=== PATIENT | male | born 1985 | race Caucasian/White ===

== ENCOUNTER 2019-06-26 10:36 | Emergency (ER) | payer SELFPAY ==
--- NOTE | 2019-06-26 10:42 | ED.DENTAL ---
HPI - Dental/Oral General Chief complaint: Dental/Oral Stated complaint: tooth pain/swelling Time Seen by Provider: 06/26/19 10:42 Source: patient and RN notes reviewed History of Present Illness HPI Narrative: Patient is a 34-year-old male that presents the urgent care with complaints of lower right jaw swelling and dental pain. Patient states that the pain started approximately 2 days ago and he woke up this morning after a nap at 3 AM with increased lower right jaw swelling. Patient states he has spoke to his dentist since the tooth pain started and he was supposed to be seen last month to get the tooth pulled. However, patient states that he did not go in due to COVID-19. Patient states his dentist should be calling him back today. States that he has been using ibuprofen for the pain. No other acute complaints. Denies any known fever, nausea, vomiting, bad taste in the mouth. Patient states he was treated for the same swelling and infection in March. Patient aware of the plan of care. Related Data Allergies Allergy/AdvReac Type Severity Reaction Status Date / Time No Known Allergies Allergy Unverified 06/26/19 10:50 Review of Systems Review of Systems: Narrative: CONSTITUTIONAL: Denies fever, chills, or sweats. EYES: Denies visual changes, redness, or discharge. ENT: Denies rhinorrhea, congestion, sore throat, or otalgia. Complaints of lower right dental pain and swelling CARDIOVASCULAR: Denies chest pain, palpitations, or edema. RESPIRATORY: Denies cough or dyspnea. GASTROINTESTINAL: Denies abdominal pain, nausea, vomiting, or diarrhea. GENITOURINARY: Denies dysuria or hematuria. SKIN: Denies rash or itching. MUSCULOSKELETAL: Denies back pain, joint pain, or myalgia. NEUROLOGIC: Denies headache, numbness, or weakness. All other systems reviewed are negative, except as documented in HPI. PMFSH Comments At the time of my signature, I reviewed and agree with the nursing past medical, surgical, social, and family history. There is no relevant family history pertinent to the patient complaint. Exam Narrative: Exam Narrative: GENERAL: This is a well-nourished, well-developed patient, in no apparent distress. HEAD: normocephalic, atraumatic. EYES: PERRL. Sclera clear/white. Vision is grossly intact. EARS: External ears normal NOSE: External nose normal with no obvious nasal discharge, nares without redness, no rhinorrhea. THROAT: Mucous membranes moist, posterior pharynx clear. Moderate lower right jaw swelling and tenderness. Notable erythemic abscess noted to the buccal aspect of the lower right first molar (#3) NECK: Neck supple CARDIOVASCULAR: Regular rate and rhythm without murmurs, gallops, or rubs. RESPIRATORY: Clear to auscultation. Breath sounds equal bilaterally. No wheezes, rales, or rhonchi. SKIN: warm, intact with no suspicious lesions or rash, good texture and turgor. NEURO: awake, alert, and oriented to person, place and time. There were no obvious focal neurologic abnormalities. EXTREMITIES: No clubbing, cyanosis, or edema. Course Vital Signs Vital signs: Vital Signs Temperature 100.1 F H 06/26/19 10:48 Pulse Rate 108 H 06/26/19 10:48 Respiratory Rate 16 06/26/19 10:48 Blood Pressure 149/90 H 06/26/19 10:48 Pulse Oximetry 100 06/26/19 10:48 Temperature 100.1 F H 06/26/19 10:48 Pulse Rate 108 H 06/26/19 10:48 Respiratory Rate 16 06/26/19 10:48 Blood Pressure 149/90 H 06/26/19 10:48 Pulse Oximetry 100 06/26/19 10:48 Reviewed?patient is informed that they may have pre-hypertension or hypertension based on a blood pressure reading in the department. I recommend the patient call the primary care provider listed on their discharge instructions or a physician of their choice this week to arrange follow-up for further evaluation of possible pre-hypertension or hypertension. MDM - Dental/Oral MDM Narrative Medical decision making narrative: Advised the patient to complete the o
[2019-06-26 10:48] VITALS: BP 149/90; PULSE 108; RESP 16; TEMP 36.8; O2SAT 100
== END 2019-06-26 11:11 | disposition home or self-care (01) ==
PROVIDERS: Emergency Provider Nurse Practitioner Family
DX: K04.7 Periapical abscess without sinus (principal)
CPT/HCPCS: 99203; G0463

== ENCOUNTER 2020-01-23 15:53 | Emergency (ER) | payer OTHER, SELFPAY ==
[2020-01-23 16:05] VITALS: BP 130/72; PULSE 92; RESP 18; TEMP 36.8; O2SAT 98
--- NOTE | 2020-01-23 16:31 | ED.MALEGU ---
HPI - Male Genitourinary General Chief complaint: Urogenital-Male Stated complaint: poss uti Time Seen by Provider: 01/23/20 16:31 Source: patient Mode of arrival: ambulatory History of Present Illness HPI Narrative: Patient presents with burning with urination. Patient complains of low suprapubic pain. Patient states he has urinary urgency and voids often. Patient denies any gross hematuria denies any back pain denies any flank pain patient denies any concern for STDs. Patient states he does have a history of kidney stones but does not have any flank pain at this time. Patient denies any testicular pain. Patient denies any penile discharge. Related Data Home Medications Medication Instructions Recorded Confirmed No Home Medications 01/23/20 01/23/20 Allergies Allergy/AdvReac Type Severity Reaction Status Date / Time No Known Allergies Allergy Verified 01/23/20 16:35 Review of Systems Review of Systems: Narrative: CONSTITUTIONAL: Denies fever, chills, or sweats. EYES: Denies visual changes, redness, or discharge. ENT: Denies rhinorrhea, congestion, sore throat, or otalgia. CARDIOVASCULAR: Denies chest pain, palpitations, or edema. RESPIRATORY: Denies cough or dyspnea. GASTROINTESTINAL: Denies abdominal pain, nausea, vomiting, or diarrhea. GENITOURINARY: Denies hematuria. Reports dysuria and urinary frequency and urgency SKIN: Denies rash or itching. MUSCULOSKELETAL: Denies back pain, joint pain, or myalgia. NEUROLOGIC: Denies headache, numbness, or weakness. PSYCHIATRIC: Denies anxiety or depression. PMFSH Comments At time of signature, agree with nursing past medical, surgical, social and family history. There is no relevant family history pertinent to the presenting complaint Exam Narrative: Exam Narrative: GENERAL: Well-appearing, well-nourished, and in no acute distress. HEAD: Normocephalic, atraumatic. EYES: PERRLA and EOMI. ENT: Nares clear, no rhinorrhea or epistaxis. Mucous membranes moist. NECK: Supple. CHEST: Clear to auscultation. No respiratory distress. HEART: Regular rate and rhythm. No murmur heard. Normal peripheral pulses. ABDOMEN: Soft, nontender, nondistended, normal active bowel sounds. EXTREMITIES: Normal range of motion. No edema. SKIN: Warm, dry, no rash. NEURO: No focal deficits. Alert and oriented x3. [place] Coma Scale Eye Opening: Spontaneous 4 [place] Coma Scale Motor: Obeys Commands 6 [place] Coma Scale Verbal: Oriented 5 [place] Coma Scale Total 15 MDM - Male Genitourinary Differential Diagnosis Differential diagnosis: Likely urinary tract infection, priapism, urethritis, epididymitis, genital herpes simplex, prostatitis and acute retention of urine Critical Care Time Critical Care Time Critical Care Time: No Discharge Plan Discharge Clinical Impression: Urinary tract infection, Dysuria, Urinary urgency, Increased urinary frequency Patient Disposition: Home, Self-Care Condition: Stable Instructions: Antibiotic Form, Urinary Tract Infection in Men (ED) Additional Instructions: Increase fluids especially cranberry juice and water Avoid caffeine and carbonated beverages Antibiotic as directed Medicine as directed--cautioned it will cause your urine to be bright orange Tylenol/ibuprofen for pain or fever Follow-up with her primary care provider if further problems or concerns Repeat urinalysis in 7 to 10 days Recheck if you have fever over 101, nausea and vomiting -If you have any worsening of symptoms or any other concerns please go to the ED immediately. Prescriptions: New cephalexin [Keflex] 500 mg capsule 500 mg PO Q12H Qty: 14 RF: 0 No Action No Home Medications RF: 0 Follow-up/Referrals: PHYSICIAN,WOODYARD OPERATOR [Primary Care Provider] - Time of Disposition: 16:40
== END 2020-01-23 16:45 | disposition home or self-care (01) ==
PROVIDERS: Emergency Provider Nurse Practitioner Family
DX: N39.0 Urinary tract infection, site not specified (principal)
CPT/HCPCS: 81003; 87086; 99213; G0463

== ENCOUNTER 2021-02-16 19:32 | Emergency (ER) | payer OTHER, SELFPAY ==
[2021-02-16 19:40] VITALS: BP 151/80; PULSE 109; RESP 20; TEMP 37.2; O2SAT 99
--- NOTE | 2021-02-16 19:53 | ED.URI ---
HPI - URI/Sore Throat General Chief Complaint: Upper Respiratory Infection Stated Complaint: Cough/Congestion Time Seen by Provider: 02/16/21 19:34 Source: patient Mode of arrival: ambulatory Limitations: no limitations History of Present Illness HPI Narrative: 35-year-old male presents to [facility] with complaints of nasal congestion, cough, chest congestion and shortness breath with exertion for the past 3 to 5 days. Patient reports that he had Covid back in November 2020 he feels like he has had a cough since. Patient denies runny nose, fever, body aches or chills. Patient is a smoker. Patient's children currently have similar symptoms. Patient denies recent travel MD elicited complaint: cough and nasal congestion Onset (ago): day(s) (3) Able to tolerate fluids by mouth: Yes Context: sick contacts Related Data Allergies Allergy/AdvReac Type Severity Reaction Status Date / Time No Known Allergies Allergy Verified 02/16/21 19:57 Review of Systems Constitutional: Constitutional: Denies chills and Denies fever(s) ENT: Reports nasal congestion and Denies sore throat Cardiovascular: Cardiovascular: Denies chest pain and Denies radiating jaw, neck or arm pain Respiratory: Respiratory: Reports chest congestion, Reports cough and Reports dyspnea Gastrointestinal: Gastrointestinal: Denies abdominal pain, Denies diarrhea, Denies nausea and Denies vomiting PMFSH Social History Social History (Updated 02/16/21 @ 19:55 by Fide Rodriguez, [employer]END[employer]) Smoking status: Current every day smoker Comments At time of signature, I agree with nursing past medical, surgical, social and family history. There is no relevant family history pertinent to the presenting complaint. Exam Const: General: healthy appearing and no acute distress Orientation/consciousness: patient oriented x3 HENMT: Ears: external ears normal General nose exam: Normal external nose present and Normal nares present Face and sinus: sinuses nontender Mouth: Yes moist mucous membranes Throat: posterior oropharynx normal and uvula midline Other: Mild nasal congestion noted Neck: Neck: normal visual inspection Resp: Effort & Inspection: normal respiratory effort Auscultation: clear to auscultation bilaterally Cardio: Rate: regular rate Rhythm: regular rhythm Skin: General skin exam: normal color Rashes: no rashes Neuro: General: patient oriented x3 and moves all extremities Psych: Mental Status: mental status grossly normal Affect: normal affect Attitude: cooperative Thought content: Yes Normal thought content present Course Vital Signs Vital signs: Vital Signs Temperature 37.2 C 02/16/21 19:40 Pulse Rate 109 H 02/16/21 19:40 Respiratory Rate 20 02/16/21 19:40 Blood Pressure 151/80 H 02/16/21 19:40 Pulse Oximetry 99 02/16/21 19:40 Temperature 37.2 C 02/16/21 19:40 Pulse Rate 109 H 02/16/21 19:40 Respiratory Rate 20 02/16/21 19:40 Blood Pressure 151/80 H 02/16/21 19:40 Pulse Oximetry 99 02/16/21 19:40 MDM - URI/Sore Throat MDM Narrative Medical decision making narrative: Patient agrees to take medications as prescribed. Patient agrees to proceed to the emergency room if symptoms worsen Differential Diagnosis Differential diagnosis: Likely otitis media, sinusitis and viral infection Lab Data Labs: (-) Influenza Critical Care Time Critical Care Time Critical Care Time: No Discharge Plan Discharge Clinical Impression: Acute upper respiratory infection Patient Disposition: Home, Self-Care Condition: Stable Instructions: Upper Respiratory Infection (ED) Additional Instructions: Rest Increase fluids Take Medrol Dosepak as prescribed Take Tessalon as needed for cough [id number] Motrin or Tylenol as needed Follow-up with primary care provider if symptoms not improved Proceed to the emergency room if symptoms worsen Patient Language: Brazilian Prescriptions: New methylprednisolo
== END 2021-02-16 20:10 | disposition home or self-care (01) ==
PROVIDERS: Emergency Provider Nurse Practitioner Family
DX: J06.9 Acute upper respiratory infection, unspecified (principal); F17.210 Nicotine dependence, cigarettes, uncomplicated; J45.909 Unspecified asthma, uncomplicated; Z86.16 Personal history of COVID-19
CPT/HCPCS: 87804; 99213; G0463

== ENCOUNTER 2021-11-04 15:19 | Emergency (ER) | payer OTHER, SELFPAY ==
--- NOTE | 2021-11-04 15:21 | ED.URI ---
HPI - URI/Sore Throat General Chief Complaint: Upper Respiratory Infection Stated Complaint: nose and throat itchy eyes itchy Time Seen by Provider: 11/04/21 15:21 Source: patient and RN notes reviewed History of Present Illness HPI Narrative: Patient is a 36-year-old male who presents the urgent care with complaints of nasal congestion, itchy eyes, sore throat, cough and sneezing. Patient states that its been ongoing for the last couple days and seems to have worsened in the last 48 hours. Patient states he does have seasonal allergies and does sleep with a fan on blowing directly on his face. Patient has been taking Benadryl, Mucinex and allergy medication. Denies of any fevers. No other acute complaints. No acute distress noted. Patient read the plan of care. Some parts of this dictation were generated by voice recognition software and may contain typographical and/or grammatical inaccuracies. Related Data Allergies Allergy/AdvReac Type Severity Reaction Status Date / Time No Known Allergies Allergy Verified 11/04/21 15:31 Review of Systems Review of Systems: CONSTITUTIONAL: Denies fever, chills, or sweats. EYES: Reports of clear drainage and eye itchiness ENT: Reports of nasal congestion, rhinorrhea, sore throat CARDIOVASCULAR: Denies chest pain, palpitations, or edema. RESPIRATORY: Reports of cough without dyspnea GASTROINTESTINAL: Denies abdominal pain, nausea, vomiting, or diarrhea. GENITOURINARY: Denies dysuria or hematuria. SKIN: Denies rash or itching. MUSCULOSKELETAL: Denies back pain, joint pain, or myalgia. NEUROLOGIC: Denies headache, numbness, or weakness. All other systems reviewed are negative, except as documented in HPI. PMFSH Social History Social History (Updated 02/16/21 @ 19:55 by Fide Rodriguez, STACIE) Smoking status: Current every day smoker Comments At the time of my signature, I reviewed and agree with the nursing past medical, surgical, social, and family history. There is no relevant family history pertinent to the patient complaint. Exam Narrative: GENERAL: This is a well-nourished, well-developed patient, in no apparent distress. HEAD: normocephalic, atraumatic. EYES: PERRL. Sclera clear/white. Vision is grossly intact. EARS: External ears normal, auditory canals clear and without drainage, TMs normal without perforation. Hearing grossly intact. NOSE: External nose normal with no obvious nasal discharge, nares without redness, clear rhinorrhea. THROAT: Mucous membranes moist, posterior pharynx clear. Moderate postnasal drainage NECK: Neck supple, non-tender without lymphadenopathy CARDIOVASCULAR: Regular rate and rhythm without murmurs, gallops, or rubs. RESPIRATORY: Clear to auscultation. Breath sounds equal bilaterally. No wheezes, rales, or rhonchi. GASTROINTESTINAL: Abdomen soft, non-tender, nondistended. Bowel sounds are active. No hepato-splenomegaly, or palpable masses. No guarding. SKIN: warm, intact with no suspicious lesions or rash, good texture and turgor. NEURO: awake, alert, and oriented to person, place and time. There were no obvious focal neurologic abnormalities. EXTREMITIES: No clubbing, cyanosis, or edema. Course Course Level of Care: Express Care Visit Vital Signs Vital signs: Vital Signs Temperature 98.7 F 11/04/21 15:23 Pulse Rate 102 H 11/04/21 15:23 Respiratory Rate 16 11/04/21 15:23 Blood Pressure 142/71 H 11/04/21 15:23 Pulse Oximetry 100 11/04/21 15:23 Oxygen Delivery Room Air 11/04/21 15:23 Temperature 98.7 F 11/04/21 15:23 Pulse Rate 102 H 11/04/21 15:23 Respiratory Rate 16 11/04/21 15:23 Blood Pressure 142/71 H 11/04/21 15:23 Pulse Oximetry 100 11/04/21 15:23 Oxygen Delivery Room Air 11/04/21 15:23 Reviewed-patient is informed that they may have pre-hypertension or hypertension based on a blood pressure reading in the department. I recommend the patient call the primary care provider listed on their discharg
[2021-11-04 15:23] VITALS: BP 142/71; PULSE 102; RESP 16; TEMP 37.1; O2SAT 100
== END 2021-11-04 15:51 | disposition home or self-care (01) ==
PROVIDERS: Emergency Provider Nurse Practitioner Family
DX: T78.40XA Allergy, unspecified, initial encounter (principal); F17.200 Nicotine dependence, unspecified, uncomplicated; J45.909 Unspecified asthma, uncomplicated; U07.1 COVID-19
CPT/HCPCS: 99213; G0463

== ENCOUNTER 2021-12-07 14:42 | Emergency (ER) | payer OTHER, SELFPAY ==
[2021-12-07 14:46] VITALS: BP 154/88; PULSE 87; RESP 16; TEMP 36.8; O2SAT 100
[2021-12-07 14:56] VITALS: BP 154/88; PULSE 87; RESP 16; TEMP 36.8; O2SAT 100
--- NOTE | 2021-12-07 15:12 | ED.DENTAL ---
HPI - Dental/Oral General Chief complaint: Dental/Oral Stated complaint: Abscess in left cheek Time Seen by Provider: 12/07/21 15:12 Source: patient Mode of arrival: ambulatory History of Present Illness HPI Narrative: 36 y/o male presented for c/o left upper dental pain and left facial swelling today. States about 2 weeks ago he broke a tooth at this site, when a piece of wood struck his face. He has been trying to schedule with dentist since then. States pain to face started lyese, he pressed on the area and felt a pop inside the skin/gum, and woke this morning with swelling at the site. Denies drainage or swelling, fever/chills. Ibuprofen relieves the pain, states pain is minimal. MD Complaint: tooth pain Related Data Home Medications Medication Instructions Recorded Confirmed cetirizine 10 mg tablet (Zyrtec) 10 mg PO DAILY 12/07/21 12/07/21 omeprazole 20 mg tablet,delayed 20 mg PO DAILY 12/07/21 12/07/21 release Allergies Allergy/AdvReac Type Severity Reaction Status Date / Time No Known Allergies Allergy Verified 12/07/21 14:55 Review of Systems Review of Systems: CONSTITUTIONAL: Denies body aches, fever, chills ENT: Denies rhinorrhea, congestion, sore throat, or otalgia. Reports dental pain CARDIOVASCULAR: Denies chest pain, palpitations RESPIRATORY: Denies cough or dyspnea. SKIN: Denies rash, itching, or wounds. MUSCULOSKELETAL: Denies myalgia. NEUROLOGIC: Denies headache, numbness, tingling, or weakness. [facility] Social History Social History Smoking status: Current every day smoker Comments At time of signature, I have reviewed and agree with nursing past medical, surgical, social and family history unless otherwise noted. Please see nursing chart for further information. There is no relevant family history pertinent to the presenting complaint Exam Narrative: GENERAL: Appears in pain; no acute distress. HEAD: Normocephalic, atraumatic. EYES: EOMI. No redness or drainage. Conjunctivae normal. ENT: Dental pain location of #13, broken tooth, tender to gum with mild swelling; moderate left facial swelling over this site no induration or fluctuance, no apparent cellulitis; Mucous membranes pink and moist. TMs normal bilaterally. Throat normal. Uvula midline. NECK: Normal AROM. No lymphadenopathy. CHEST: Clear to auscultation. HEART: Regular rate and rhythm. No murmur appreciated. SKIN: Warm, dry, no rash. Normal skin turgor. NEURO: Alert and oriented x3. Course Course Emergency Course: Patient is aware of diagnosis, understands and agrees to treatment plan. Anticipatory guidance given. Patient agrees to follow-up as directed and is aware of reasons to seek care at the emergency department. Portions of this record may have been created with voice recognition software Level of Care: Express Care Visit Vital Signs Vital signs: Vital Signs Temperature 98.3 F 12/07/21 14:46 Pulse Rate 87 12/07/21 14:46 Respiratory Rate 16 12/07/21 14:46 Blood Pressure 154/88 H 12/07/21 14:46 Pulse Oximetry 100 12/07/21 14:46 Oxygen Delivery Room Air 12/07/21 14:46 Temperature 98.3 F 12/07/21 14:56 Pulse Rate 87 12/07/21 14:56 Respiratory Rate 16 12/07/21 14:56 Blood Pressure 154/88 H 12/07/21 14:56 Pulse Oximetry 100 12/07/21 14:56 Oxygen Delivery Room Air 12/07/21 14:56 MDM - Dental/Oral MDM Narrative Medical decision making narrative: Patients pain and PE are consistent with dental abscess. Reviewed danger triangle. There are no focal signs of space occupying lesions that are compromising to the airway, No uvular deviation or soft palate edema. Patient is non-toxic appearing. Patient is without trismus or drooling and able to swallow secretions. Patient is felt appropriate for discharge home with dental follow up. plans to schedule [place]. Advised supportive measures and signs/symptoms to go
== END 2021-12-07 15:26 | disposition home or self-care (01) ==
PROVIDERS: Emergency Provider Nurse Practitioner Family
DX: K04.7 Periapical abscess without sinus (principal); F17.290 Nicotine dependence, other tobacco product, uncomplicated
CPT/HCPCS: 99213; G0463